=== PATIENT | female | born 1955 | race African-American/Black ===

== ENCOUNTER 2018-05-16 15:01 | Emergency (ER) | payer OTHER ==
[~2018-05-16] VITALS: Ht 160 cm; Wt 81.6 kg
[2018-05-16 15:06] VITALS: Ht 160 cm; Wt 81.6 kg
[2018-05-16 15:50] LABS: CARBON DIOXIDE 30.6 mmol/L (21-32); CHLORIDE SERUM 102 mmol/L (98-107); CREATININE SERUM 0.9 mg/dL (0.6-1.0); GFR1 > 60 mL/min; GLUCOSE SERUM 91 mg/dL (74-106); POTASSIUM SERUM 3.9 mmol/L (3.5-5.1); SODIUM SERUM 138 mmol/L (136-145)
[2018-05-16 15:56] LABS: ALBUMIN 3.2 g/dL (3.4-5.0); ALKALINE PHOSPHATASE 108 U/L (46-116); ALT/SGPT 19 U/L (14-59); AST/SGOT 20 U/L (15-37); BASOPHIL % 0.3 % (0-2); BILIRUBIN TOTAL 0.39 mg/dL (0.20-1.00); PLATELET COUNT 261 x10^3mcL (130-400); RED CELL DISTRIBUTION WIDTH 14.1 % (11.5-14.5); TOTAL PROTEIN, SERUM 8.6 g/dL (6.4-8.2)
[2018-05-16 18:20] VITALS: BP 145/76
== END 2018-05-16 18:21 | disposition home or self-care (01) ==
LOC: ED 15:01
PROVIDERS: Emergency Medicine
DX: J06.9 Acute upper respiratory infection, unspecified (principal); I82.409 Acute embolism and thrombosis of unspecified deep veins of unspecified lower extremity; I10 Essential (primary) hypertension; E11.9 Type 2 diabetes mellitus without complications; Z95.5 Presence of coronary angioplasty implant and graft
CPT/HCPCS: J7030; J7613; J7644; Q0092

== ENCOUNTER 2019-06-26 14:45 | Inpatient (IN) | payer OTHER ==
[~2019-06-26] VITALS: Ht 160 cm; Wt 64.4 kg
--- NOTE | 2019-06-26 15:00 | NUR ---
BIB MEDIC S/P BLOODY SPUTUM ONSET TODAY. 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 PT ADMITS TO SMOKING FOR 40 YEARS. STOPPED SMOKING SINCE 7 YEAR INCARCERATION. COMFORT MEASURES AND SUPPORTIVE CARE INTIATED. PREP FOR ERMD ADRIAL. AGENCY DOCUMENTATION DONE BY Staff Name/Title - :PHYLLIS HUNT RN ice User ID - :[id number] Agency Name - :CERTIFIED Time Documented - From - :0700 To - :1900
--- NOTE | 2019-06-26 15:28 | NUR ---
SEEN BY DR. CHAVEZ. ORDERS NOTED. SUPPORTIVE CARE CONTINUED. GUARDS REMAIN AT BS.
[2019-06-26 16:03] LABS: BASOPHIL % 0.2 % (0-2); PLATELET COUNT 327 x10^3mcL (130-400); RED CELL DISTRIBUTION WIDTH 20.8 % (11.5-14.5)
[2019-06-26 16:11] LABS: CALCIUM 7.6 mg/dL (8.5-10.1); CARBON DIOXIDE 32.7 mmol/L (21-32); CREATININE SERUM 1.2 mg/dL (0.6-1.0); POTASSIUM SERUM 3.5 mmol/L (3.5-5.1)
[2019-06-26 16:16] LABS: BILIRUBIN TOTAL 0.8 mg/dL (0.20-1.00); TOTAL PROTEIN, SERUM 7.3 g/dL (6.4-8.2)
[2019-06-26 16:17] LABS: ALBUMIN 2.6 g/dL (3.4-5.0)
[2019-06-26 17:31] VITALS: BP 120/70
--- NOTE | 2019-06-26 18:52 | NUR ---
1820: PATIENT CAME TO THE FLOOR VSS. A/OX4 NO SIGNS OR COMPLAINTS OF SOB OR PAIN. EVEN AND UNLABORED BREATHING. PATIENT LUNG SOUNDS DIMINISHED, CARDIAC SOUNDS WDL, ACTIVE BOWEL SOUNDS, SKIN INTACT. PATIENT HAS +3 EDEMA IN THE RIGHT FOOT +2 EDEMA IN THE LEFT FOOT. PEDAL PULSES +1. PATIENT ON PROFESSIONAL SECURITY OFFICER, BED IN LOWEST POSITION, CALL LIGHT WITHIN REACH. ALL NEEDS ADDRESSED AT THIS TIME. DEPUTIES AT BEDSIDE.
[2019-06-26 19:40] VITALS: BP 122/73
[2019-06-26 20:32] VITALS: BP 139/76
[2019-06-27 05:13] VITALS: BP 121/71
[2019-06-27 06:18] LABS: BASOPHIL % 0.3 % (0-2); PLATELET COUNT 314 x10^3mcL (130-400)
--- NOTE | 2019-06-27 06:20 | NUR ---
PATIENT ALERT, ORIENTED X 4, PLEASANT AND CALM, UP AD MARGARET TO BEDSIDE COMMODE WITH MINIMAL ASSISTANCE DUE TO ANKLE CUFFS. SOME DRY COUGHING NOTED DURING SHIFT, ENCOURAGED TO DRINK PLENTY WATER. NO COMPLAINTS OF PAIN. LYING IN BED ON BACK AWAKE AT THIS TIME, NO COMPLAINTS, BED IN LOW POSITION, SIDE RAILS UP X 3, CALL LIGHT WITHIN REACH, POLICE AT BEDSIDE.
[2019-06-27 06:31] LABS: RED CELL DISTRIBUTION WIDTH 21.6 % (11.5-14.5)
[2019-06-27 06:50] LABS: CARBON DIOXIDE 33.2 mmol/L (21-32); CREATININE SERUM 1.2 mg/dL (0.6-1.0); POTASSIUM SERUM 3.9 mmol/L (3.5-5.1)
--- NOTE | 2019-06-27 07:15 | NUR ---
PATIENT ALERT AND ORIENTED. STABLE, NO SIGNS OF RESPIRATORY DISTRESS NOTED AT THIS TIME, BUT COUGH IS NOTED. PATIENT HOB ELEVATED TO HELP WITH BREATHING. NO COMPLAINTS OF CHEST PAIN OR PRESSURE. SAFETY PRECAUTIONS IN PLACE. POLICE AT BEDSIDE. WILL CONTINUE TO MONITOR.
[2019-06-27 07:28] LABS: microscopic required? YES; urine erythrocyte 2+ (NEGATIVE)
--- NOTE | 2019-06-27 08:00 | NUR ---
PATIENT RECEIVED FROM [employer] AND SITTING UP IN BED. SHE IS ANXIOUS AND WANTS ICE CHIPS. SHE HAS BEEN WITH DIMINISHED BUT CLEAR BREATH SOUNDS AND HAS ACTIVE BOWEL SOUNDS AND HAS BEEN ON BEDREST WITH BSC AND IS APPARENTLY USES A WHEELCHAIR AT THE [facility]. HX OF DVT AND PE WELL LUNG CANCER NOTED. SHE HAS COME DUE TO COMPLAINED OF VOMITING UP OF BLOOD. SHE HAS SCRATCHES ON HER BACK THAT ARE SELF INFLICTED AND WHEN ASKED SHE DOES NOT KNOW WHY SHE SCRATCHES. SHE HAS CEHLLE HOSE IN PLACE AND NOTED THE RIGHT FOOT THAT IS DANGLING ON THE FLOOR IS WITH SOME SWELLING TO THE ANKLE AND ENCOURAGE TO PUT BACK UP ON THE BED FOR ELEVATION. TONY AT BEDSIDE AND SECURITY HAS BEEN MAINTAINED. SHE DOES NOT COMPLAIN OF PAIN OR SOB AT THIS TIME. SHE IS JUST HUNGRY AND THIRSTY. SHE HAS BEEN REQUESTING FOOD AND FLUIDS ON THE WEIGHER [employer] OFTEN. WILL CONTINUE TO MONITOR.
[2019-06-27 09:07] VITALS: BP 132/86
--- NOTE | 2019-06-27 09:30 | NUR ---
ASSISTED PATIENT WITH AMBULATING FROM BED TO BEDSIDE CHAIR. NO FALLS OR NEW INJURY. IV TO RAC INTACT AND PATENT. SELF-INFLICTED SCRATCHES TO BACK NOTED. NO C/O PAIN AND PRESSURE TO CHEST NOTED. SLIGHT SWELLING TO RIGHT ANKLE NOTED, COMPRESSION STOCKINGS IN PLACE. PATIENT IS EATING NO SUGAR JELO AND STABLE IN CHAIR AT BEDSIDE. POLICE IN ROOM.
--- NOTE | 2019-06-27 12:20 | NUR ---
PATIENT IS IN BEDSIDE CHAIR EATING LUNCH. NO ACUTE DISTRESS NOTED. REQUESTED SODA AND CHIPS. REEDUCATED PATIENT ABOUT CARDIAC DIET. DIET SODA GIVEN, BUT NO CHIPS PROVIDED. PATIENT VERBALIZED UNDERTANDING. BLOOD GLUCOSE WAS 91. NO NEED FOR INSULIN COVERAGE AT THIS TIME. SAFETY PRECAUTIONS IN PLACE. WILL CONTINUE TO MONITOR.
[2019-06-27 13:18] VITALS: BP 133/79
--- NOTE | 2019-06-27 13:20 | NUR ---
PATIENT IS ANXIOUS AND OFFERED AND GAVE ATIVAN. WILL MONITOR FOR EFFECTIVENESS. PATIENT IS REQUESTING ICE AND FLUID AND FOOD REGULARLY AND REGULARLY STAFF IS REMINDED HER SHE HAS A CONTROLED DIET. WILL CONTINUE TO REINFORCE INDICATED. GAURD AT BEDSIDE AND SECURITY MAINTAINED.
--- NOTE | 2019-06-27 13:56 | NUR ---
REMINDED PATIENT OF HER INTAKE OF FLUIDS AND TO WATCH HERSELF SHE HAS A HISTORY OF CONGESTIVE HEART FAILURE AND FLUIDS SHOULD NOT BE TAKEN SO OFTEN. PATIENT SEEMS TO HAVE UNDERSTOOD THE INSTRUCTIONS. WILL CONTINUE TO MONITOR.
[2019-06-27 14:09] VITALS: Ht 160 cm; Wt 64.4 kg
--- NOTE | 2019-06-27 15:00 | NUR ---
SEEN BY THE THERMOSTAT MACHINE TENDER AND PLAN OF CARE DISCUSSED. PATIENT HAS HISTORY OF STENT PLACEMENT AND PREVIOIUS ANGIO. DR GIVEN THE CHART TO REVEW HER HISTORY OF THE LAST TWO ADMISSIONS. STATES HE BELIEVES HE HAS HAD HER A PATIENT AT [place]. AWAITING ORDERS INDICATED.
--- NOTE | 2019-06-27 15:38 | NUR ---
PATIENT SEEN AND ADVISED SHE NEEDS A NEW IV SITE. SHE BASICALLY DISMISSED STAFF AND STATES SHE NEEDS AN EXPERT. PATIENT ADVISED THAT STAFF IS JUST GOING TO LOOK RIGHT NOW THE US TECH IS AT BEDSIDE READY TO PREFORM THE VASCULAR STUDY AT BEDSIDE. SHE IS ALREADY REFUSING THE IV TO THE HAND AND HAS BEEN WITH MULTIPLE BRUSING AND SCARING TO THE ARMS. WILL ATTEMPT IV ACCESS WHEN THE TEST IS COMPLETED. PATIENT HAS NOTED EDEMA TO THE LOWER EXTREMITES AND HAS TAKEN OFF HER CHELLE HOSE TO THE RIGHT AND NOW THE LEFT FOR THE TEST. CONTINUED TO ENCOURAGE SHE KEEP HER FEET ELEVATED AND NO TO DRINK SO MUCH FLUIDS AND SODIUM.
[2019-06-27 16:52] VITALS: BP 130/75
--- NOTE | 2019-06-27 18:30 | NUR ---
PATIENT IN BED. SLEEPING ON THE RIGHT SIDE POSITON. REMAINS ON 2L NC. NO RESPIRATORY DISTRESS NOTED. COUGH PRESENT, NO SPUTUM NOTED. PATIENT HAD JUST FINISHED EATING DINNER. NEW IV NS BAG 1000ML STARTED AT 50 ML/HR. IV INTACT AND PATENT. BEEN IN CONTACT WITH VQ LUNG SCAN WORKER FROM [facility], STATES THAT THEY MAY ARRIVEIN 2 HOURS. PATIENT STATES THAT SHE IS WILLING TO LAY BACK DOWN FOR 2O MINUTES DURING THE SCAN. HOWEVER, WHEN TRYING TO DO SO, SOB NOTED WHEN LAYING BACK. THIS INFORMATION HAS BEEN RELAYED TO VQ SCAN WORKER. ALL NEEDS MET, CALL LIGHT WITHIN REACH.SAFETY PRECAUTIONS IN PLACE. POLICE AT BEDSIDE. WILL CONTINUE TO MONITOR AND ENDORSE TO DAY SHIFT NURSE.
[2019-06-27 21:10] VITALS: BP 146/87
[2019-06-28 05:12] VITALS: BP 141/91
--- NOTE | 2019-06-28 05:15 | NUR ---
Patient sitting up in bed at this time, awake. Patient has had an uneventful night, but some complaints of SOB. Requested respiratory come administer a neb treatment. Patient often found with nasal cannula attached improperly to nares. Educated and demonstrated patient on the proper way to put on the nasal cannula, and the importance due to her constant SOB. Patient verbalized understanding. No requests for much food or fluids tonigt, was given two packs of crackers and an unsweet jello at her request. Bed in low postition, side rails up x 3, call light within reach. No complaints or concerns voiced. Officer at bedside.
[2019-06-28 06:24] LABS: BASOPHIL % 0.6 % (0-2); PLATELET COUNT 263 x10^3mcL (130-400)
[2019-06-28 06:25] LABS: CALCIUM 8.2 mg/dL (8.5-10.1); CARBON DIOXIDE 28.6 mmol/L (21-32); CREATININE SERUM 1.3 mg/dL (0.6-1.0); POTASSIUM SERUM 3.4 mmol/L (3.5-5.1)
[2019-06-28 06:30] LABS: RED CELL DISTRIBUTION WIDTH 21.8 % (11.5-14.5)
--- NOTE | 2019-06-28 07:27 | NUR ---
RECEIVED PATIENT. IN BED SLEEPING ON THE LATERAL LEFT SIDE POSITION. HOB SEMI FOWLERS. REMAINS ON 2L NASAL CANNULA. SHORTNESS OF BREATH NOTED WHILE SLEEPING. IV PATENT AND INTACT. NS RUNNING AT 30 ML/HR AT THIS TIME. NO C/O OF PAIN OR PRESSURE. SAFETY PRECAUTIONS IN PLACE. WILL CONTINUE TO MONITOR. POLICE PRESENT IN ROOM.
[2019-06-28 07:54] LABS: rbc morphology (normal/abnorm) ABNORMAL (NORMAL)
--- NOTE | 2019-06-28 08:00 | NUR ---
RECEIVED PATIENT ALERT AND ORIENTED BUT VERY SOB AND IS UP USING THE COMODE AT THIS TIME. SHE WAS ENCOURAGED TO REAPPLY HER 02 AND ASSISTED HER BACK TO BED AGAIN. SHE DOES NOT WANT TO ELEVATE HER LEGS AND IS VERY RESTLESS. STAFF WILL GIVE PO ATIVAN INDICATED. PATIENT HAS BEEN ON BREATHING TREATMENTS AND HAS TOLERATED. SHE HAS GAURD AT BEDSIDE AND SECURITY HAS BEEN MAINTAINED. PATIENT WITH CHELLE HOSE TO THE BILATERAL LEGS AND NOTED THE PATIENT HAS DIMINISHED BREATH SOUNDS AND SHE HAS DISTENDED BUT SOFT ABDOMEN. SOME EDEMA NOTED TO HTE LOWER EXTREMITES AND STATED SHE IS REMINDED TO ELEVATE AND TO LIMIT HER FLUIDS AND SOIDUM INTAKE. SHE HAS BEEN FORGETFUL AT TIMES AND SHE IS WITH CONTINUAL REQUESTS FOR FLUIDS AND CRACKERS AND SNACKS. PATIENT AHS A RASPY VOICE AND APPEAR TO HAVE TROUBLE CATCHING HER BREATH AT TIMES. BLOOD SUGAR AT THIS TIME AT 128 AND VITALS ARE AT 141/91, 20, 99, 97 % ON 2 LITERS AND RESPIRATIONS ARE SHALLOW AND AT TIMES SHE HAS SOB. WILL CONTINUE TO MONITOR REGULAR AND QUE THE PATIENT TO FOLLOW PLAN OF CARE.
[2019-06-28 09:26] VITALS: BP 148/90
--- NOTE | 2019-06-28 09:52 | NUR ---
ADVISED THE DR OF MRSA TO THE NARES AND ORDER FOR BACTROBAN AND HIBICLEANSE RECEIVED. PATIENT HAS BEEN IN ISOLATION FOR MRSA HISTORY. ALSO SPOKE TO HIM ABOUT THE ELIQUIS AND WHETHER OR NOT TO CONTINUE. AWAITING THE DIRECTOR PROSPECT TO DESIDE THE PLAN OF CARE. THE VQ WAS DONE BUT UNABLE TO NOT TO RULE OUT A PE AT THIS TIME.
--- NOTE | 2019-06-28 10:05 | NUR ---
PATIENT IN BEDSIDE CHAIR. 2L NC IN PLACE. SOB NOTED. NO C/O PAIN AND PRESSURE NOTED. RIGHT ANKLE EDEMA NOTED, EDUCATED PATIENT TO ELEVATE THE FEET TO HELP WITH SWELLING. PATIENT VERBALIZES UNDERTANDING. PROVIDED PATIENT LOTION TO HELP WITH ITCHINESS IN BACK. EDUCATED TO AVOID SCRATCHING TO PREVENT POSSIBLE INFECTION. IV RUNNING AT 3O ML/HR. IV INTACT AND PATENT. WILL CONTINUE TO MONITOR.
--- NOTE | 2019-06-28 10:25 | NUR ---
PATIENT IS HAVING AN ECHO AT THIS TIME. REINFORCED IV AND SEEN BY DR RAINEY WELL AND WILL AWAITING RESULTS AT THIS TIME.
[2019-06-28 12:24] VITALS: BP 115/70
--- NOTE | 2019-06-28 12:40 | NUR ---
PATIENT IN BEDSIDE CHAIR EATING LUNCH AND WATCHING TV. 2L NC REMAINS IN PLACE. COMPRESSION STOCKINGS IN PLACE. IV NS RUNNING 50ML/HR, INTACT AND PATENT. NO ACUTE DISTRESS NOTED. WILL CONTINUE TO MONITOR. POLICE REMAINS WITH PATIENT IN THE ROOM.
--- NOTE | 2019-06-28 12:53 | NUR ---
PATIENT WENT DOWN TO RADIOLOGY FOR CT CHEST W/O CONTRAST VIA WHEELCHAIR ORDERED. POLICE AND MEDICAL TRANSPORT OBSERVED WITH PATIENT.
--- NOTE | 2019-06-28 13:00 | NUR ---
PATIENT ARRIVED FROM CT CHEST, PENDING RESULTS. PLACED ON 2L NC. PATIENT IN BEDSIDE CHAIR WATCHING TV AT THIS TIME. CHANGED IV NS RUNNING TO 10 ML/HR TKO. IV INTACT AND PATENT. WILL CONTINUE TO MONITOR.
--- NOTE | 2019-06-28 15:25 | NUR ---
PATIENT IN BEDSIDE CHAIR. 2L NC IN PLACE. SOB NOTED AND SHORT OF BREATH WHEN TALKING. RECHECKED HER IV, PATENT AND INTACT. IV NS RUNNING AT 10ML/HR TKO. WILL RESTRICT FLUIDS BECAUSE IT CONTRAINDICATES DIURETIC MEDICATIONS LASIX AND ALDACTONE. EDUCATED PATIENT ABOUT PURPOSE OF TREATMENT, PATIENT VERBALIZES UNDERSTANDING. PATIENT HAD BM X3. WILL ENDORSE TO DIRECTOR OF PARTNERSHIPS TO HOLD ANY STOOL MEDICATIONS. POLICE REMAINS AT BEDSIDE, WILL CONTINUE TO MONITOR PATIENT.
--- NOTE | 2019-06-28 15:30 | NUR ---
PATIENT RESULTS OF THE CT OF THE CHEST SHOW NO PE AND HAS SOME INFILTRATES AND A MASS TO THE BREAST. PATIENT HAS BEEN SOB ON AND OFF AND SHE HAS BEEN ENCOURAGE TO DEEP BREATH AND TO WEAR THE 02 NASAL CANNULA INDICATED. GAURD AT BEDSIDE AND SECURITY MAINTAINED.
--- NOTE | 2019-06-28 16:36 | NUR ---
1630 DR. GRIGSBY MADE AWARE OF CT CHEST RESULTS FOR PATIENT. RECOMMENDED TO GET ONCOLOGY CONSULT. [address] RAINEY AND MADE AWARE OF CT CHEST RESULTS FOR THIS PATIENT WELL DR. GRIGSBY RECOMMENDATION TO GET ONCOLOGY CONSULT. DR. RAINEY HAS NO NEW ORDERS FOR THIS PATIENT AND STATED LONG DR. GRIGSBY IS AWARE OF THE RESULTS/SITUATION. WILL CONTINUE TO MONITOR PATIENT AND ENDORSE TO DAIRY AND FOOD LABORATORY ASSISTANT NURSE.
[2019-06-28 16:55] VITALS: BP 127/79
--- NOTE | 2019-06-28 18:40 | NUR ---
PATIENT IS SITTING UP IN BED WATCHING TV WITH LEGS ON THE SIDE OF BED. SUGGESTED TO ELEVATE FEET TO HELP WITH RIGHT ANKLE SWELLING. PATIENT VERBALIZE UNDERSTANDING. PATIENT REQUESTS FOR ANOTHER BREATHING TREATMENT. PARESH MARIA CALLED RESPIRATORY AND INFORMED ABOUT THE REQUEST, RESPIRATORY STATED THAT THEY WILL COME UP AND GIVE PATIENT TREATMENT. PATIENT HAS REQUESTED BREATHING TREATMENT TWICE ADDITIONALLY TO WHAT HAS ALREADY BEEN SCHEDULED. PATIENT REMAINS ON 2L NC. SOB NOTED. NO COMPLAINTS OF PAIN OR PRESSURE. SAFETY PRECAUTIONS IN PLACE. ALL NEEDS MET. STAFF ACCOUNTANT IN ROOM. WILL CONTINUE TO MONITOR AND ENDORSE TO VE TEACHER NURSE.
[2019-06-28 20:45] VITALS: BP 143/81
--- NOTE | 2019-06-29 02:39 | NUR ---
ALERT, ORIENTED X 4. PATIENT SITTING UP IN BED WATCHING T.V. WITH BOUTS OF DRY COUGH, DENIES SOB. UNABLE TO SPEAK CLEARLY AT TIMES, AND WHISPERS. COMPLAINED THAT IV LOCATED IN HER RIGHT WRIST AREA WAS HURTING, AND SHE WANTED IT TAKEN OUT. IV SITE ASSESSED, NO REDNESS OR INFILTRATION NOTED. IV WAS REMOVED PER PATIENT REQUEST. COMPLAINED OF HEADACHE, ADMINISTERED PRN PAIN MED. HEADACHE WAS RELIEVED WHEN ASSESSED AN HOUR LATER. PATIENT IS ALWAYS COLD, AND REQUESTED TWO MORE BLANKETS. HEAT IN ROOM WAS OFF. PATIENT RELAYED TO NURSE THAT THE OFFICER WANTED THE HEAT IN THE ROOM OFF. PATIENT WAS TOLD THAT IF SHE WANTED THE HEAT ON, SHE COULD HAVE IT ON. VERBALIZED UNDERSTANDING. PATIENT WANTED TO CONTINUE TO SIT UP IN CHAIR INSTEAD OF GETTING IN BED TO SLEEP. SITTING UP IN CHAIR WITH BLANKETS, BED LOCKED, CALL LIGHT WITHIN REACH. INSTEAD OF GETTING IN BED TO SLEEP. SITTING UP IN CHAIR WITH BLANKETS, BED LOCKED, CALL LIGHT WITHIN REACH. OFFICER AT BEDSIDE.
[2019-06-29 05:45] VITALS: BP 152/95
[2019-06-29 06:24] LABS: CALCIUM 8.4 mg/dL (8.5-10.1); CARBON DIOXIDE 30.4 mmol/L (21-32); CREATININE SERUM 1.4 mg/dL (0.6-1.0)
--- NOTE | 2019-06-29 07:30 | NUR ---
PT IS AAO4. TELE [address] READING NSR. IV CATH TO LAC. SITE WNL. N/C 2LPM IN PLACE. PT DENIES PAIN AND DISCOMFORT AT THIS TIME. CALL LIGHT WITHIN REACH. FALL PROTOCOL IN PLACE. ON GUARD IN ROOM ON ONE TO ONE SUPERVISION.
--- NOTE | 2019-06-29 07:30 | NUR ---
PT IS AAO4. TELE [address] READING NSR. IV CATH OT LAC. SITE WNL. N/C 2LPM IN PLACE. PT DENIES PAIN AND DISCOMFORT AT THIS TIME. CALL LIGHT WITHIN REACH. FALL PROTOCOL IN PLACE. ON GUARD IN ROOM ON ONE TO ONE SUPERVISION.
[2019-06-29 08:14] VITALS: BP 152/95
--- NOTE | 2019-06-29 08:50 | NUR ---
DR. GARLAND MET WITH PT AND DISCUSSED POC. PT IS TO HAVE ONCOLOGY CONSULT. PT AGREED WITH POC.
--- NOTE | 2019-06-29 08:59 | NUR ---
(PULMUNOLOGIST) IN AND DID ROUNDS, SPOKE TO PT AND HAD UPDATED THE PT OF HER CURRENT DISEASE CONDITION AND PROGRESSION OF HER CANCER. PLAN OF CARE WAS ALSO DISCUSSED AND ALSO TO NOTIFY OF A ONCOLOGY CONSULT FOR [facility] RE-PT EXTENSIVE LUNG CA AND PT HAD VERBALIZED UNDERSTANDING. HAD SPOKE TO (SENIOR INTEGRATION DEVELOPER) OF PT CURRENT CONDITION AND ALSO HER BRILINTA MEDICATION, FOR TO DETERMINE WHEN TO RESUME IT. I CALLED AND SPOKE TO AND MADE HIM AWARE OF [facility]OVE ESPECIALLY ONCOLOGY MD. WILL AWAIT FOR FURTHER PLAN.
--- NOTE | 2019-06-29 09:34 | NUR ---
SCHEDULED MEDS GIVEN AND TOLERATED WELL. B/P 145/88, HR 101. PT DENIES PAIN AND DISCOMFORT. NON-PRODUCTIVE COUGH NOTED. PT REPOSITIONED IN BED FOR COMFORT. CALL LIGHT WITHIN REACH. GUARD IN ROOM ON ONE TO ONE SUPERVISION.
[2019-06-29 09:45] VITALS: BP 145/88
[2019-06-29 11:22] LABS: BASOPHIL % 0.8 % (0-2); PLATELET COUNT 260 x10^3mcL (130-400); RED CELL DISTRIBUTION WIDTH 21.5 % (11.5-14.5)
--- NOTE | 2019-06-29 11:56 | NUR ---
HIBICLENS APPLIED TOPICALLY. BS 120 NO INSULIN INDICATED PER RISS. PT DENIES PAIN AT THIS TIME. NON PRODUCTIVE COUGH NOTED. O2 N/C AT 2 LPM INTACT. PT DENIES PAIN. CALL LIGHT WITHIN REACH.
[2019-06-29 12:15] VITALS: BP 137/74
[2019-06-29] MEDS ORDERED: ASPIR 8181 MG PO (12:46)
[2019-06-29] MEDS ORDERED: FERROUS SULFAT325 M2 (12:47)
[2019-06-29] MEDS ORDERED: COL100 PO (12:47)
[2019-06-29] MEDS ORDERED: [UNRECOGNIZED DRUG - OTHER] PO (12:54)
[2019-06-29] MEDS ORDERED: LASIX40 MG PO (12:55)
[2019-06-29] MEDS ORDERED: NITROGLYCERIN0.4 MG SL (12:56)
[2019-06-29] MEDS ORDERED: PROTONIX40 MG PO (12:57)
[2019-06-29] MEDS ORDERED: BRILINTA90 M1 PO (12:58)
[2019-06-29] MEDS ORDERED: CARVEDILOL6.25 M1 PO (12:59)
[2019-06-29] MEDS ORDERED: ATORVASTATIN CA40 M1 PO (12:59)
[2019-06-29] MEDS ORDERED: ENTRESTO1 TA2 PO (13:01)
[2019-06-29] MEDS ORDERED: ELIQUIS2.5 MG PO (13:02)
--- NOTE | 2019-06-29 13:35 | NUR ---
RECEIVED PT'S MED LIST FROM [facility], RECONCILED MEDS AND REPORTED TO DR. RAINEY. RECEIVED ORDERS FROM DR. RAINEY HOLD CARVEDILOL, ELIQUIS, AND BRILINTA FOR EXPERT MEDICAL WRITER TO DECIDE IF THEY SHOULD BE ADDED. HOLD LASIX IT IS ALREADY ORDERED. PLEASE CONTINUE FE SO4 BID, CALCIUM CARBONATE TID, NITROGLYCERIN PRN, PROTONIX Q DAY, ATORVASTATIN Q HS, AND ENTRESTO BID. ORDERS NOTED AND CARRIED OUT. PT MADE AWARE.
--- NOTE | 2019-06-29 14:50 | NUR ---
SCHEDULED MED GIVEN AND TOLERATED WELL. BEDDING AND PT'S GOWN CHANGED. PT DENIES PAIN AT THIS TIME. ON GUARD IN ROOM ON ONE TO ONE SUPERVISION. CALL LIGHT WITHIN REACH.
--- NOTE | 2019-06-29 15:42 | NUR ---
DR. RAINEY MADE AWARE THAT PHARMACY DOES NOT CARRY ENTRESTO AND [facility] WILL NOT SEND MEDICATION OUT. ALSO MADE DR. RAINEY AWARE THAT PHARMACY WILL BE HOLDING BRILLANTA ORDER MADE BY DR. AVILEZ DUE TO INTERACTION WITH AMIODARONE. PHARMACY HAD PAGED DR. AVILEZ AND IS AWAITING CALL BACK. NO NEW ORDERS FROM DR. RAINEY AT THIS TIME.
--- NOTE | 2019-06-29 17:55 | NUR ---
PT IS AAOX4. RESP EVEN AND UNLABORED. NO S/S OF HEMOPTYSIS THIS SHIFT. TELE [address] READING NSR. IV CATH TO LAC, SITE WNL. PT DENIES PAIN AND DISCOMFORT. O2 N/C 2LPM INTACT. WILL ENDORSE ALL CARE TO NOC RN.
[2019-06-29 18:09] VITALS: BP 126/80
--- NOTE | 2019-06-29 18:55 | NUR ---
IV CATH PULLED OUT FROM LAC. SITE WNL. COVERED SWITH GAUZE AND BANDAID. NEW IV CATH STARTED TO RAC 22G. SITE WNL. PT TOLERATED PROCEDURE WELL.
--- NOTE | 2019-06-29 20:05 | NUR ---
PT RECIEVED AWAKE ALERT AND SITTING UP ON THE CHAIR AND WITH LOW TONE VOICE,REG RESP NO SOB,PT ON 2L NC SAT 96%,HL INTACT SITE PATENT,BED IN THE LOW POSITION AND LOCKED,PT ON TELE MONITOR AND IN NSR NO ECTOPY OR CHEST PAIN AT THIS TIME,CALL LIGHT EASY REACHED AND WILL CONTINUE TO MONITOR.
[2019-06-29 20:18] VITALS: BP 144/88
--- NOTE | 2019-06-29 21:12 | NUR ---
PT IS UP AITTING UP ON THE CHAIR,WILL CONTINUE TO MONITOR.
--- NOTE | 2019-06-29 23:14 | NUR ---
PT RESTING AT THIS TIME,WILL CONTINUE TO MONITOR.
[2019-06-30 05:44] VITALS: BP 131/77
--- NOTE | 2019-06-30 06:36 | NUR ---
PT HAD A RESTING NIGHT NO CHANGE AT THIS TIME,WILL CONTINUE TO MONITOR
--- NOTE | 2019-06-30 07:30 | NUR ---
PT IS AAOX4. DENIES HEMOPTYSIS THROUGH OUT THE NIGHT AND AT THIS TIME. TELE [address] READING NSR. IV CATH NS LOCKED TO RFA. SITE WNL. PT IS ON 02 N/C AT 2 LPM. NO COUGH OR SOB NOTED AT THIS TIME. CALL LIGHT WITHIN REACH. BED IN LOWEST POSITION. FALL PROTOCOL FOLLOWED. ONE GUARD IN ROOM ON ONE TO ONE SUPERVISION.
[2019-06-30 08:34] VITALS: BP 137/80
--- NOTE | 2019-06-30 09:38 | NUR ---
DUE MEDS GIVEN AND TOLERATED WELL. PT DENIES PAIN. NO C/O HEMOPTYSIS AT THIS TIME. PT NOTED WITH NONPRODUCTIVE COUGH. N/C AT LPM IN PLACE. PT IS SITTING UP IN BEDSIDE CHAIR. ON GUARD IN ROOM ON ONE TO ONE SUPERVISION. CALL LIGHT WITHIN REACH. FALL PROTOCOL MAINTAINTED.
--- NOTE | 2019-06-30 10:20 | NUR ---
PT OFF UNIT FOR C/T OF ABDOMEN/PELVIS.
--- NOTE | 2019-06-30 10:46 | NUR ---
PT BACK FROM X-RAY. SITTING IN BEDSIDE CHAIR. RESP EVEN AND UNLABORED. N/C 2LPM IN PLACE. PT DENIES PAIN. CALL LIGHT WITHIN REACH. GUARD IN ROOM ON ONE TO ONE SUPERVISION.
--- NOTE | 2019-06-30 10:53 | NUR ---
1045= Spoke with Apollo Zavala regarding MRI of the brain, clarified if needs to be done today prior calling Dr. Banks for approval & He said to do it on Tuesday.
--- NOTE | 2019-06-30 10:57 | NUR ---
1048= Informed Aure (Imaging) & Sukhdev Miranda RN about MRI of the Brain on Tuesday per Apollo Zavala
[2019-06-30 12:05] VITALS: BP 129/80
--- NOTE | 2019-06-30 13:23 | NUR ---
SCHEDULED MEDS GIVEN AND TOLERATED WELL. PT SITTING UP IN CHAIR AT BEDSIDE. RESP EVEN AND UNLABORED. NO DISTRESS NOTED. CALL LIGHT WITHIN REACH. GUARD IN ROOM ON ONE TO ONE SUPERVISION.
[2019-06-30 16:22] VITALS: BP 130/68
--- NOTE | 2019-06-30 17:15 | NUR ---
BLOOD SUGAR 98, NO INSULIN INDICATED PER RISS. SCHEDULED MEDS GIVEN AND TOLERATED WELL. PT DENIES PAIN. CALL LIGHT WITHIN REACH. GUARD IN ROOM ON ONE ONE SUPERVISION.
--- NOTE | 2019-06-30 18:15 | NUR ---
PT IS AAOX4. RESP EVEN AND UNLABORED. PT HAS O2 N/C AT [address] TELE [address] READING NSR WITH R BBB. IV CATH TO RFA N/S LOCKED. SITE WNL. PT DENIES PAIN AND DISCOMFORT AT THIS TIME. CALL LIGHT WITHIN REACH. BED IN LOWEST POSITION. GUARD IN ROOM ON ONE TO ONE SUPERVISION.
--- NOTE | 2019-06-30 19:45 | NUR ---
RECEIVED REPORT FROM DAY SHIFT NURSE, ERIK YODER. PT IS SITTING ON CHAIR AT BEDSIDE, AAOX4. SPEECH IS CLEAR. DENIES GREEN. ON TELE #2 READING SR WITH BBB. DENIES CP. PULSES ARE PALPABLE. EDEMA NOTED ON BLE 2+ PITTING. COMPRESSION SOCKS IN PLACE. ENCOURAGED PT TO RAISE FEET UP ON BED. BREATHING IS EVEN AND UNLABORED ON 2LNC. RT AT BEDSIDE. LUNG SOUNDS ARE CLEAR AND DIMINISHED YULY. ABD IS SOFT AND NONDISTENDED. BS ACTIVE IN ALL 4Q. COMMODE AT BEDSIDE. VOIDS FREELY. GENERALIZED WEAKNESS. SKIN INTACT. FEW MINOR SCRATCHES ON BACK, CLOSED WOUNDS. NO DRAINAGE NOTED. DENIES PAIN AT THIS TIME. BED IN LOWEST POSITION. CALL LIGHT WITHIN REACH. INSTRUCTIONAL DESIGN MANAGER AT BEDSIDE. WILL CONTINUE TO MONITOR.
[2019-06-30 20:36] VITALS: BP 130/75
--- NOTE | 2019-06-30 20:48 | NUR ---
ROUTINE MEDICATIONS WERE GIVEN AND TOLERATED WELL. NO ACUTE DISTRESS NOTED. PT IS REQUESTING SLEEPING PILL AND BREATHING TREATMENT. PT STATES SHE FEELS SOB. WILL CALL RT FOR TX.
--- NOTE | 2019-06-30 22:42 | NUR ---
PT STATES SHE FEELS BETTER AFTER RT TX. NO RESP DISTRESS NOTED. ATIVAN WAS ALSO ADMINISTERED PER MAR ORDER. REQUESTING FOR JELLO BEFORE BED. PROVIDED. BED IN LOWEST POSITION. CALL LIGHT WITHIN REACH. GRAZING EXAMINER AT [facility]. WILL CONTINUE TO MONITOR.
--- NOTE | 2019-07-01 01:14 | NUR ---
PT IS RESTING COMFORTABLY WITH EYES CLOSED, BUT EASILY AROUSABLE WHEN SPOKEN TO. BREATHING IS EVEN AND UNLABORED ON 2LNC. NO SIGNS OF RESP. DISTRESS. CALL LIGHT WITHIN REACH. MOTORCYLES FINAL INSPECTOR AT BEDSIDE. DANI CONTINUE TO MONITOR.
--- NOTE | 2019-07-01 04:46 | NUR ---
PT SLEPT IN LONG INTERVALS THROUGHOUT THE SHIFT AND COMPLIED WITH NURSING CARE WITH NO ACUTE EVENTS OCCURRING OVER NIGHT. COMFORT AND SAFETY MEASURES MAINTAINED. ALL NEEDS ASSESSED AND ATTENDED TO. WAITER/WAITRESS SECOND CLASS AT BEDSIDE. WILL CONTINUE TO MONITOR AND ENDORSE CARE TO DAY SHIFT NURSE.
[2019-07-01 04:55] VITALS: BP 138/84
[2019-07-01 06:19] LABS: CALCIUM 8.5 mg/dL (8.5-10.1); CARBON DIOXIDE 32.7 mmol/L (21-32); CREATININE SERUM 1.2 mg/dL (0.6-1.0); POTASSIUM SERUM 3.2 mmol/L (3.5-5.1)
[2019-07-01 06:32] LABS: BASOPHIL % 0.1 % (0-2); PLATELET COUNT 224 x10^3mcL (130-400)
[2019-07-01 06:47] LABS: RED CELL DISTRIBUTION WIDTH 20.6 % (11.5-14.5)
--- NOTE | 2019-07-01 07:28 | NUR ---
ENDORSED CARE TO DAY SHIFT NURSE, ERICA YODER.
--- NOTE | 2019-07-01 08:00 | NUR ---
ALERT AND ORIENTED. SITTING UP IN BED EATING BREAKFAST. DENIES ANY PAIN. ON 02 2L NC AND RT PROTOCOL. TELE # 2 ST W BBB HR 125. GETS UP TO CHAIR ON HER OWN. EDEMA TO BLE'S. WEARING COMPRESSION STOCKINGS. NO MORE HEMOPTYSIS. CALL LIGHT WITHIN REACH. 1 GUARD IN ROOM.
[2019-07-01 08:56] VITALS: BP 126/74
[2019-07-01 12:49] VITALS: BP 128/77
[2019-07-01 13:31] LABS: rbc morphology (normal/abnorm) ABNORMAL (NORMAL)
[2019-07-01 13:36] LABS: acanthocyte (spur cell) 2+; burr cell (echinocyte) 1+; ovalocyte/elliptocyte 1+
--- NOTE | 2019-07-01 16:41 | NUR ---
RECEIVED T.C, FROM [facility] [employer]. HE WILL BE HERE TOMORROW FOR MRI.
[2019-07-01 16:55] VITALS: BP 120/79
--- NOTE | 2019-07-01 19:15 | NUR ---
RECEIVED REPORT FROM DAY SHIFT NURSE, ERICA YODER. PT IS AAOX4. SITTING UP IN CHAIR AT BEDSIDE. BREATHING IS EVEN AND UNLABORED ON 2LNC. DENIES SOB. PT REMOVED COMPRESSION STOCKINGS. ENCOURAGED PT TO PUT THEM ON AND RAISE FEET TO REDUCE SWELLING. BED IN LOWEST POSITION. CALL LIGHT WITHIN REACH. RELEASE ENGINEER AT BEDSIDE. WILL CONTINUE TO MONITOR.
--- NOTE | 2019-07-01 20:01 | NUR ---
ALERT AND ORIENTED. SAT UP IN CHAIR MOST OF SHIFT TODAY. CONTINUES ON ZOSYN IV ABX. SL TO RT FA PATENT. MRI OF BRAIN TO [facility] FOR METS TOMORROW. ABLE TO MAKE NEED KNOWN. LITTLE ASSISTANCE. ENCOURAGED PT TO KEEP LOWER LEGS ELEVATED WHEN SITTING UP INCHAIR SHE HAS EDEMA TO LEGS BILAT. TAKING LASIX. CALL LIGHT WITHIN REACH. NO C/O PAIN THIS SHIFT.
[2019-07-01 20:30] VITALS: BP 134/77
--- NOTE | 2019-07-01 21:45 | NUR ---
ROUTINE MEDICATIONS ADMINISTERED AND TOLERATED WELL. NO ACUTE DISTRESS NOTED. PT IS SITTING ON CHAIR AT BEDSIDE, WATCHING TV. BREATHING IS EVEN AND UNLABORED ON 2LNC. NO RESP DISTRESS NOTED. HIP HOP DANCER AT BEDSIDE. CALL LIGHT WITHIN REACH. WILL CONTINUE TO MONITOR.
[2019-07-02] VITALS (7 sets, daily range): BP systolic 98–162; BP diastolic 52–94
--- NOTE | 2019-07-02 00:04 | NUR ---
PT IS RESTING COMFORTABLY WITH EYES CLOSED, BUT EASILY AROUSABLE WHEN SPOKEN TO. BREATHING IS EVEN AND UNLABORED ON 2LNC. NO SIGNS OF RESP. DISTRESS. CORRECTIONAL OFFICERS AT BEDSIDE. BED IN LOWEST POSITION. CALL LIGHT WITHIN REACH. WILL CONTINUE TO MONITOR.
--- NOTE | 2019-07-02 02:47 | NUR ---
PT IS RESTING IN CHAIR AT BEDSIDE. BREATHING IS EVEN AND UNLABORED ON 2LNC. NO SIGNS OF RESP. DISTRESS. ASKING FOR A JELLO. PROVIDED. DENIES ANY PAIN OR SOB. FLAG SIGNALER AT BEDSIDE. CALL LIGHT WITHIN REACH. BED IN LOWEST POSITION. WILL CONTINUE TO MONITOR.
--- NOTE | 2019-07-02 05:24 | NUR ---
PT SLEPT IN INTERVALS THROUGHOUT THE SHIFT AND COMPLIED WITH NURSING CARE WITH NO ACUTE EVENTS OCCURRING OVERNIGHT. COMFORT AND SAFETY MEASURES MAINTAINED. ALL NEEDS ASSESSED AND ATTENDED TO. WILL CONTINUE TO MONITOR AND ENDORSE CARE TO DAY SHIFT NURSE.
[2019-07-02 06:45] LABS: BASOPHIL % 0.6 % (0-2); PLATELET COUNT 191 x10^3mcL (130-400)
[2019-07-02 06:53] LABS: CALCIUM 8.6 mg/dL (8.5-10.1); CARBON DIOXIDE 34.7 mmol/L (21-32); CREATININE SERUM 1.1 mg/dL (0.6-1.0)
[2019-07-02 07:11] LABS: POTASSIUM SERUM 2.9 mmol/L (3.5-5.1)
--- NOTE | 2019-07-02 07:15 | NUR ---
ENDORSED CARE TO DAY SHIFT NURSE, DIOGENES YODER.
--- NOTE | 2019-07-02 07:42 | NUR ---
Dr. Apollo Villela paged regarding potassium 2.9 and clarification of MRI without contrast for today. Patient made aware. Will continue to monitor. Call light within reach.
--- NOTE | 2019-07-02 08:00 | NUR ---
PATIENT RECEIVED IN BED. ALERT AND ORIENTED X 4. NO SIGNS OF DISTRESS. NO C/O PAIN. RESPIRATION EVEN AND UNLABORED. PATIENT ON 2L NC. PATIENT AWARE THAT SHE IS SCHEDULED FOR MRI WITHOUT CONTRAST TODAY. WILL CONTINUE TO MONITOR. CALL LIGHT WITHIN REACH.
--- NOTE | 2019-07-02 08:24 | NUR ---
Spoke with Dr. Apollo Villela regarding Potassium 2.9 and MRI without contrast today. MD order for medication to improve potassium levels. MD clarification MRI without contrast for patient. Patient made aware. Will continue to monitor. Call light within reach.
[2019-07-02 08:36] LABS: RED CELL DISTRIBUTION WIDTH 21.4 % (11.5-14.5)
[2019-07-02 13:19] LABS: rbc morphology (normal/abnorm) ABNORMAL (NORMAL)
--- NOTE | 2019-07-02 13:47 | NUR ---
Initial Nutrition Assessment: Madelin Blank 224B Dx: lung cancer, HEMOPTYSIS, pna PMHx: Squamos cell carcinoma (recently diagnosed), diabetes (past), CAD PSHx: n/a Labs: (07/02/19) K: 2.9, alb: 2.6, H/H: 8.5/28%, no hgba1c, no lipid panel Meds: aldactone, Lipitor, [id number], one time dose of Kcl, tums, zosyn, insulin prn Diet: Cardiac diet PO intake since admission: po intakes mostly 76-100% since admission Ht: 63 inches Wt: 141.7# BMI: 25.2 Bed scale: 165# IBW: 115# %IBW: 123% UBW: pt does not know Age: 64/F Food Allergies: NKFA Skin: Zach: 21 Edema: 2+ pitting edema in BLE GI: Last BM: on 07/01/19 RD Note: spoke with patient at bedside, pt verbalized no nutritional issues at this time, says she resides at a custodial and they serve all the meals, sometimes they will let her go out to buy her own food, pt does not like dairy products, fish or peanut butter, does eat fruits and vegetables sometimes but not often Problem with: N/V/D/C: no Problems with: Chewing: Swallowing: no Current appetite: good appetite Recent wt change: pt reports weight loss of unknown amount %wt change: unknown Vitamin/Supplement use: pt says she only takes blood pressure pills Special diet at home: Regular Physical activity: none Nutrition education given (specify specific nutrition education and handout given): spoke with pt about low sodium/low fat diet, encouraged pt to eat more fresh fruits, vegetables and dairy however pt verbalizes she doesn't like these foods, encouraged pt to avoid adding salt to foods to help lower overall salt consumption. Pt did not want any written materials at this time. Food-drug interactions? Education given? Diuretics lower potassium, encouraged high potassium food intake Estimated Nutritional Needs Based on ideal body weight (52.3 kg) Energy: 1569 kcal/day (30 kcal/kg for weight maintenance) Protein: 63-73 g/day (1.2-1.4g/kg to preserve lean body mass) Fluid: 2927-5878 mL/day (1 mL/kcal or 25-30 cc/kg) Nutrition Diagnosis: 1. Altered nutrition-related labs r/t diuretic use AEB potassium of 2.9. 2. Involuntary weight gain r/t edema and current diagnoses AEB 14# weight gain since admission. Intervention 1. Encouraged high potassium intakes. Recommended fruit juices with meals (prune and orange juice). Encouraged compliance with low sodium/low fat diet as prescribed. Monitor/Evaluate Goal: PO intake at least 75% of estimated needs Monitor: PO intake, Labs, GI function F/U 07/05- as moderate risk
--- NOTE | 2019-07-02 13:48 | NUR ---
recommended to patient to increase consumption of high potassium foods. agreed to drink fruit juices with meals (orange or prune). no recommendations made to MD at this time.
--- NOTE | 2019-07-02 14:00 | NUR ---
PATIENT TRANSFERRED DOWN FOR MRI W/O CONTRAST OF HEAD PROCEDURE. PRIMARY PHYSICIAN DR. RAINEY AWARE. PATIENT MADE AWARE. NO SIGNS OF DISTRESS NOTED. WILL CONTINUE TO MONITOR. CALL LIGHT WITHIN REACH.
--- NOTE | 2019-07-02 18:47 | NUR ---
PATIENT MONITORED IN BED. NO SIGNS OF DISTRESS NOTED. WILL CONTINUE TO MONITOR. CALL LIGHT WITHIN REACH.
--- NOTE | 2019-07-02 20:00 | NUR ---
PATIENT RECEIVED IN BED AWAKE,ALERT AND ORIENTED X3, FORGETFUL, SPEECH CLEAR, RASPY VOICE.DENIED HEADACHE NOR DIZZINESS. NO RESP. DISTRESS BREATHING EVEN AND UNLABORED BS FINE CRACKLES BASES,STATED OCC PRODUCTIVE COUGH WHITISH CLEARED BY COUGHING, O2 AT 2LNC SAT 1005. DENIED CHEST PAINS HR=84BPM, RHYTHM REGULAR, SR W/ BBB.HEPLOCK TO RFA PATENT AND INTACT.BLE EDEMA NOTED 3+, ELEVATED ON A PILLOW HWILE IN BED AND ADVICED TO KEEP IT ELEVATED, COMNPRESSION STOCKING IN USE, PULSES MODERATE, PATIENT COMPLAINED OF BLE PAIN AT THIS TIME RATED AT 4/10 INFORMED ABOUT PAIN MANAGEMENT. NEEDS ASSIST WITH ADL'S AND ACTIVITY, NEEDS ANTICIPATED, CALL LIGHT PLACED IN REACH. CONTACT ISOLATION FOR MRSA/NARES POSITIVE OBSERVED AND MAINTAINED. 1 CIW OFFICER AT BEDSIDE. SAFETY/FALL PRECAUTIONS MAINTAINED. WILL CONTINUE TO MONITOR.
--- NOTE | 2019-07-02 21:29 | NUR ---
SCHEDULED MEDS ADMINISTERED, PATIENT INFORMED ABOUT EACH MEDS ACTIONS AND PURPOSE PRIOR. PATIENT TOOK PILLS WELL. PATIENT ALSO REQUESTED FOR INSOMNIA PILL AND PAIN PILL FOR COMPLAINT OF BLE PAIN, MEDICATED PRN. WILL RE-ASSESS EFFECTIVENESS.
--- NOTE | 2019-07-02 22:26 | NUR ---
RE-ASSESS PAIN TO BLE PATIENT STATED PAIN SCALE AT 2/10 BETTER.
--- NOTE | 2019-07-03 00:11 | NUR ---
PATIENT DOOZING OFF AND ON, COMFORTABLE, 1 CIM OFFICER AT BEDSIDE. SR W/ BBB ON THE MONITOR. CONTACT ISOLATION FOR MRSA/NARES POSITIVE OBSERVED. SAFETY PRECAUTIONS MAINTAINED.WILL CONTINUE TO MONITOR.
[2019-07-03 06:11] VITALS: BP 116/59
--- NOTE | 2019-07-03 06:23 | NUR ---
PATIENT SLEPT GOOD AND RESTED COMFORTABLY DURING THE SHIFT.NO RESP. DISTRESS ENCOUNTERED ,OCC PRODUCTIVE COUGH OF WHITISH TO YELLOWISH SPUTUM WITH SMALL AMT OF BLOOD TINGED. O2 AT 2LNC MAINTAINED. SR W/ BBB ON THE MONITOR. VOIDED WITHOUT DIFF, AMBULATORY TO BS WITH STEADY GAIT. 1 CIW OFFICER AT BEDSIDE AT ALL TIMES. CONTACT ISOLATION OBSERVED AND MAINTAINED. HEPLOCK TO RT FA PATENT AND INTACT. SAFETY PRECAUTIONS MAINTAINED. WILL ENDORSE CONTINUITY OF CARE TO INCOMING NURSE.
[2019-07-03 07:08] LABS: BASOPHIL % 0.6 % (0-2); PLATELET COUNT 203 x10^3mcL (130-400)
[2019-07-03 07:18] LABS: RED CELL DISTRIBUTION WIDTH 24.3 % (11.5-14.5)
[2019-07-03 07:20] LABS: CALCIUM 8.8 mg/dL (8.5-10.1); CARBON DIOXIDE 34.1 mmol/L (21-32); CREATININE SERUM 1.1 mg/dL (0.6-1.0); POTASSIUM SERUM 3.3 mmol/L (3.5-5.1)
--- NOTE | 2019-07-03 07:22 | NUR ---
BEDSIDE REPORT HANDS OFF AND INTRODUCTION PERFORMED WITH INCOMING NURSE KASSY.
--- NOTE | 2019-07-03 07:50 | NUR ---
RECEIVED PATIENT RESTING IN BED, NO ACUTE DISTRESS NOTED. PATIENT DENIES PAIN. PATIENT A/OX3, DENIES HEADACHE. RASPY VOICE NOTED. TELE MONITOR IN PLACE. PATIENT DENIES CHEST PAIN. DENIES SOB, PATIENT ON 2L NC. LUNG SOUND DIMINISHED TO THE LLL, AND FINE CRACKLES NOTED TO RLL. PATIENT VOIDS FREELY. PATIENT ABLE TO TRANSFER TO [facility], GENERALIZED WEAKNESS NOTED. EDEMA NOTED TO BILATERAL LOWER EXTREMITIES +3, EDUCATED PATIENT TO MAINTAIN BLE ELEVATED. PATIENT VERBALIZED UNDERSTANDING. IV TO RFA SALINE LOCK, NO S/S OF INFILTRATION. CALL NONA GALLARDO, BED IN LOW POSITION, ALBINO JIMENEZ AT BEDSIDE FOR SAFETY PRECATION. WILL CONTINUE TO MONITOR FOR CHANGES.
[2019-07-03 07:54] LABS: rbc morphology (normal/abnorm) ABNORMAL (NORMAL)
[2019-07-03 07:55] LABS: schistocyte (helmet cell) 1+
[2019-07-03 08:54] VITALS: BP 136/77
--- NOTE | 2019-07-03 09:30 | NUR ---
MEDICATIONS GIVEN AT THIS TIME, PATIENT TOLERATED PO MEDS. NO ACUTE DISTRESS NOTED. ALL NEEDS MET AT THIS TIME. CIW AT BEDSIDE, CALL LIGHT WITHIN REACH, BED IN LOW POSITION. WILL CONTINUE TO MONITOR.
[2019-07-03 12:49] VITALS: BP 112/69
--- NOTE | 2019-07-03 13:50 | NUR ---
IV TO RIGHT FOREARM BECAME INFILTRATED, IV TO RFA REMOVED, CATH INTACT. RN GARCIA INSERTED NEW IV TO LAC, X1 ATTEMPT, 20G. IV ABX CONTINUED AT THIS TIME. WILL CONTINUE TO MONITOR.
[2019-07-03 15:14] VITALS: BP 112/69
--- NOTE | 2019-07-03 16:40 | NUR ---
PATIENT RECEIVED COPY OF DISCHARGED INSTRUCTIONS, PATIENT UNDERSTANDS AND AGREES WITH DISCHARGE INSTRUCTIONS AND PLAN OF CARE, INCLUDING MEDICATIONS & FOLLOW UP CARE. ALL QUESTIONS AND CONCERNS ADDRESSED. CALL LIGHT WITHIN REACH, BED IN LOW POSITION, WILL CONTINUE TO MONITOR.
[2019-07-03 16:50] VITALS: BP 99/55
--- NOTE | 2019-07-03 19:05 | NUR ---
TELE MONITOR RETURNED TO MINISTER.
--- NOTE | 2019-07-03 19:48 | NUR ---
RECEIVED BEDSIDE REPORT FROM PARESH BRANDT.
--- NOTE | 2019-07-03 20:34 | NUR ---
PT LEFT VIA W/C, ACCOMPANIED BY [facility] GUARDS AND JOCKEY ROOM CUSTODIAN. PT REMAINS A/A/O X 3 (PERSON, PLACE, PURPOSE), CALM, COOPERATIVE. DENIES CHEST PAIN, DISCOMFORT, OR RESPIRATORY DISTRESS. IV SITE LAC 20G, CDI. ALL D/C PAPERS W/ GUARDS.
== END 2019-07-03 20:33 | disposition other institution (70) | DRG 180 ==
LOC: ED 14:45 → DU 16:55
PROVIDERS: Emergency Medicine; Internal Medicine Cardiovascular Disease; ADMIT Internal Medicine
DX: C34.90 Malignant neoplasm of unspecified part of unspecified bronchus or lung (principal); J18.9 Pneumonia, unspecified organism; J96.01 Acute respiratory failure with hypoxia; I50.43 Acute on chronic combined systolic (congestive) and diastolic (congestive) heart failure; R04.2 Hemoptysis; J91.8 Pleural effusion in other conditions classified elsewhere; I13.0 Hypertensive heart and chronic kidney disease with heart failure and stage 1 through stage 4 chronic kidney disease, or unspecified chronic kidney disease; J90 Pleural effusion, not elsewhere classified; I25.10 Atherosclerotic heart disease of native coronary artery without angina pectoris; I48.0 Paroxysmal atrial fibrillation; E78.5 Hyperlipidemia, unspecified; E11.51 Type 2 diabetes mellitus with diabetic peripheral angiopathy without gangrene; B19.20 Unspecified viral hepatitis C without hepatic coma; N18.3 Chronic kidney disease, stage 3 (moderate); I25.2 Old myocardial infarction; Z95.5 Presence of coronary angioplasty implant and graft; Z87.891 Personal history of nicotine dependence; Z79.84 Long term (current) use of oral hypoglycemic drugs; Z79.899 Other long term (current) drug therapy; Z86.711 Personal history of pulmonary embolism; Z86.718 Personal history of other venous thrombosis and embolism; Z95.820 Peripheral vascular angioplasty status with implants and grafts; Z79.01 Long term (current) use of anticoagulants; Z79.82 Long term (current) use of aspirin; Z79.02 Long term (current) use of antithrombotics/antiplatelets; Z22.322 Carrier or suspected carrier of Methicillin resistant Staphylococcus aureus
CPT/HCPCS: 82962; 83880; 85378; A9540; C9113; G0378; J1956; J2543; J7030; J7050; J7620; J7626; Q0092